=== PATIENT | male | born 2000 | race Caucasian/White ===

== ENCOUNTER 2023-10-07 20:38 | Emergency (ER) | payer BC, SELFPAY ==
--- NOTE | 2023-10-07 | ECG_ITS ---
Test Reason : CP Blood Pressure : / mmHG Vent. Rate : 076 BPM Atrial Rate : 076 BPM P-R Int : 146 ms QRS Dur : 094 ms QT Int : 384 ms P-R-T Axes : 022 052 043 degrees QTc Int : 432 ms Normal sinus rhythm Normal ECG No previous ECGs available Referred By: Generic ED Physician Electronically Signed By:NIDHI DAVISON
--- NOTE | ~2023-10-07 | XR_ITS ---
EXAMINATION: XR CHEST CLINICAL INFORMATION: cough, chest pain COMPARISON: Chest radiograph 01/06/2018 TECHNIQUE: 2 views of the chest were obtained. FINDINGS: The lungs are well expanded. No focal consolidation, effusion, edema, or pneumothorax. The cardiomediastinal silhouette is within normal limits for technique and unchanged. No acute osseous abnormality. XR/XR chest 2V IMPRESSION: No acute pulmonary disease.
[2023-10-07 20:46] VITALS: BP 145/92; PULSE 89; RESP 22; TEMP 36.9; O2SAT 95; BMI 28.4
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
[2023-10-07 22:45] VITALS: BP 145/92; PULSE 89; RESP 22; TEMP 36.9; O2SAT 95
[2023-10-07 22:55] LABS: Influenza A PCR NEGATIVE (Negative); Influenza B PCR NEGATIVE (Negative); Resp Syncy Virus RNA Qual PCR NEGATIVE (Negative); SARS COV2 PCR INHOUSE NEGATIVE (Negative)
== END 2023-10-07 22:45 | disposition home or self-care (01) ==
LOC: HO.ED 22:40
PROVIDERS: Emergency Provider Emergency Medicine
DX: J20.8 Acute bronchitis due to other specified organisms (principal)
CPT/HCPCS: 0241U; 71046; 93005; 99283

== ENCOUNTER → 2023-10-07 20:41 | Outpatient (BNV) | payer BC, SELFPAY | PROVIDERS: Emergency Provider Emergency Medicine; Visit Provider Internal Medicine | DX: R07.9 Chest pain, unspecified (principal) | CPT/HCPCS: 93010 ==